=== PATIENT | male | born 1985 | race African-American/Black ===

== ENCOUNTER 2020-09-20 17:45 | Emergency (ER) | payer SELFPAY ==
--- NOTE | 2020-09-20 17:57 | PCM.SN.2 ---
- Free Text/Narrative Note: 76 bpm, NSR, normal QRS interval, no STEMI. EKG and rhythm strip interpreted by me at 1742
[2020-09-20] MEDS ORDERED: Ketorolac 30 MG/ML SDV IVPUSH ONE (18:02)
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
== END 2020-09-20 19:44 | disposition home or self-care (01) ==
LOC: MW.ED 17:45
DX: R51.9 Headache, unspecified (principal); M25.512 Pain in left shoulder; F17.200 Nicotine dependence, unspecified, uncomplicated; R07.9 Chest pain, unspecified
CPT/HCPCS: 36415; 84484; 93005; 96374; 96375; 99285; J1885; J3360